=== PATIENT | male | born 1940 | race Caucasian/White ===

== ENCOUNTER 2023-10-29 04:34 | Inpatient (IN) | payer MEDICARE, SELFPAY ==
[2023-10-29] VITALS (17 sets, daily range): BP systolic 108–132; BP diastolic 6–82; PULSE 76–120; RESP 18–26; TEMP 36.2–37.4; O2SAT 95–100; BMI 16.7; BMI 15.7
--- NOTE | ~2023-10-29 | XR_ITS ---
XR chest 2V 10/31/2023 12:52 Indication: Shortness of breath Procedure: 2 view chest Comparison: 10/28/2023 Findings: Improved diffuse interstitial infiltrates with peripheral preference. No significant effusi on. No pneumothorax. Stable cardiomediastinal silhouette. Impression: 1: Improved diffuse bilateral interstitial infiltrates with areas of honeycombing in the lung bases, consistent with chronic interstitial lung disease. Cannot exclude superimposed interstitial edema. Reviewed, dictated and finalized at location B. Impression: 1: Improved diffuse bilateral interstitial infiltrates with areas of honeycombi ng in the lung bases, consistent with chronic interstitial lung disease. Cannot exclude superimposed interstitial edema.
--- NOTE | 2023-10-29 03:26 | ADMGEN ---
This patient, Logan Vicente, was admitted to IMU Room 201-01. Patient/family oriented to hospital policies and general routines including ID bracelet, bed and alarms, visiting hours, pain management, procedures, bathroom and other care routines, personal items, smoking policy, room service/diet, and visiting hours. Information on how to activate the Rapid Response Team has been discussed. Patient/Family are encouraged to report perceived risks to care and to ask questions if they do not understand what they are told or what they should do.
--- NOTE | 2023-10-29 04:36 | ECG_ITS ---
Test Date: 2023-10-29 11:29:51 Measurements Intervals [place] Rate: 86 P: 0 MI: 0 QRS: 38 QRSD: 84 T: -21 QT: 347 QTc: 415 Interpretive Statements ATRIAL FIBRILLATION NONSPECIFIC T-WAVE ABNORMALITY ABNORMAL RHYTHM ECG No previous ECG available for comparison Electronically Signed On 10-29-2023 11:40:55 CDT by Lisseth Erickson M.D.
[2023-10-29 06:18] LABS: Basophils Percent Auto 0.1 % (0.2-1.2); Hematocrit 37.8 % (42.0-52.0); Immature Granulocyte Absolute 0.07 K/mm3 (0.00-0.031); Immature Granulocyte Percent A 0.6 % (0-0.5); Lymphocytes Absolute Auto 0.39 K/mm3 (0.9-3.2); Lymphocytes Percent Auto 3.3 % (18.3-44.2); Mean Corpuscular HGB Conc 31.7 g/dl (32-36); Mean Corpuscular Hemoglobin 30.8 pg (26-34); Mean Corpuscular Volume 96.9 fl (80-100); Mean Platelet Volume 9.8 fl (7.4-10.4); Monocytes Absolute Auto 0.2 K/mm3 (0.1-0.6); Monocytes Percent Auto 1.5 % (2.6-8.5); Neutrophils Percent Auto 94.5 % (45.5-73.1); Platelet Count Result 166 k/mm3 (150-375); Red Cell Distribution Width 15.1 % (11.5-14.5); White Blood Count 11.7 K/mm3 (4.5-10.0)
[2023-10-29 06:34] LABS: Anion Gap 5 mmol/L (4-12); Blood Urea Nitrogen 15 mg/dL (9-20); Calcium 8.7 mg/dL (8.4-10.2); Carbon Dioxide 24 mmol/L (22-30); Chloride 108 mmol/L (98-107); Estimated CRCL calculation 54 ml/min; Estimated Glomerular Filt Rate > 60; Glucose 175 mg/dL (65-110); Magnesium 2.1 mg/dL (1.6-2.3); Phosphorus 3.3 mg/dL (2.5-4.5); Potassium 4.1 mmol/L (3.4-5.0); Sodium 137 mmol/L (137-145)
[2023-10-29 06:36] LABS: INR 1.1; Prothrombin Time 14.8 Seconds (11.1-14.7)
[2023-10-29 06:37] LABS: Partial Thromboplastin Time 34.6 Seconds (22.3-36.8)
[2023-10-29] MEDS: MORPHINE SULFATE (*CRX) 2 MG/ML INJ IV PUSH (08:26)
[2023-10-29] MEDS: PANTOPRAZOLE 40 MG TABLET PO (08:27)
[2023-10-29] MEDS: TAMSULOSIN HCL 0.4 MG CAPSULE PO (08:27)
[2023-10-29] MEDS: FLUTICASONE PROPIONATE 0.05% NA SPR 16 GM BTL (*BKC) 1 SPRAY NASAL ×2 (08:27→18:37)
[2023-10-29] MEDS: APIXABAN 2.5 MG TABLET PO ×2 (08:27→20:00)
[2023-10-29] MEDS: METOPROLOL SUCCINATE EXT REL 50 MG TABCR PO (08:27)
[2023-10-29] MEDS: FLUTICASONE/SALMETEROL 45-21 MCG INHALER 1 PUFF 2 PUFF INHALATION ×2 (08:56→20:30)
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
--- NOTE | 2023-10-29 17:51 | PM.IMHP ---
H&P: HPI History of Present Illness Date/Time: 10/29/23 17:51 Chief Complaint: Shortness of breath Narrative: Patient is 83-year-old pleasant male who has a history of COPD in the past history of hypertension. Comes to the hospital complaining of severe shortness of breath. He states his shortness of breath has gotten worse in the last few days denies any productive cough no nausea no vomiting. Patient has not been on any antibiotics recently. Does uses inhalers at home and has been compliant with all his home medications. Patient also has history of AFib for which she takes Eliquis. Patient states since he has been in the emergency room since last night and he has felt a lot better breathing has improved patient denies any orthopnea or dizziness or palpitation PMFSH Past Medical History Medical History (Updated 10/29/23 @ 12:09 by Nayan Cali MD) COPD (chronic obstructive pulmonary disease) GERD (gastroesophageal reflux disease) Hypertension Surgical History Surgical History (Updated 04/10/19 @ 17:35 by Lazara Blanton, [facility], ) History of cholecystectomy Social History Social History (Updated 04/10/19 @ 17:36 by Lazara Blanton, [facility], ) Social History: Quit smoking in 1987. Smoking status: Former smoker Alcohol intake: never Substance use: never Substance use type: does not use Do You Feel Safe in your Home?: Yes Lack of Transportation: No Lack of Food: Never True Current Housing: I Have Housing Concerned About Future Housing: No Difficulty Paying Gas/Electric Bills: No Difficulty Paying for Meds: No Currently Unemployed: No Education: High School Diploma/GED Difficulty w/ Childcare or Family Care: No Spiritual care concerns: No Meds Home Medications and Allergies Home Medications Medication Instructions Recorded Confirmed Type tamsulosin 0.4 mg capsule 0.4 mg PO DAILY 04/10/19 10/29/23 History albuterol sulfate 90 mcg/actuation 2 puff inhalation Q4H PRN 10/29/23 10/29/23 History aerosol inhaler Shortness Of Breath Or Wheezing apixaban 2.5 mg tablet (Eliquis) 2.5 mg PO BID 10/29/23 10/29/23 History budesonide-formoterol HFA 80 2 puff inhalation BID 10/29/23 10/29/23 History mcg-4.5 mcg/actuation aerosol inhaler fluticasone propionate 50 1 spray intranasal BID 10/29/23 10/29/23 History mcg/actuation nasal spray,suspension ipratropium 0.5 mg-albuterol 3 mg 3 ml inhalation Q6H PRN Shortness 10/29/23 10/29/23 History (2.5 mg base)/3 mL nebulization Of Breath soln metoprolol succinate 50 mg 50 mg PO DAILY 10/29/23 10/29/23 History tablet,extended release 24 hr montelukast 10 mg tablet 10 mg PO QHS 10/29/23 10/29/23 History pantoprazole 40 mg tablet,delayed 40 mg PO DAILY 10/29/23 10/29/23 History release Allergies Allergy/AdvReac Type Severity Reaction Status Date / Time codeine Allergy Unknown Unknown Verified 04/10/19 15:51 Vital Signs Vital Signs - 24 hr 10/29/23 03:33 10/29/23 03:00 10/29/23 04:00 Temperature 36.5 C 36.5 C 36.4 C Pulse Rate 101 H 78 99 Respiratory Rate 26 H 20 18 Blood Pressure 111/73 111/73 114/65 Pulse Oximetry 100 100 100 Oxygen Delivery Oxygen Flow Rate 10/29/23 04:00 10/29/23 04:00 10/29/23 05:52 Temperature Pulse Rate 100 100 94 Respiratory Rate 26 H Blood Pressure Pulse Oximetry 100 Oxygen Delivery High Flow Nasal Cannula Oxygen Flow Rate 5 10/29/23 07:43 10/29/23 08:00 10/29/23 08:00 Temperature 36.4 C Pulse Rate 89 98 89 Respiratory Rate 20 20 Blood Pressure 118/74 Pulse Oximetry 98 98 Oxygen Delivery High Flow Nasal Cannula Oxygen Flow Rate 5 10/29/23 10:00 10/29/23 11:48 10/29/23 12:00 Temperature 37.0 C Pulse Rate 90 108 H 120 H Respiratory Rate 24 H Blood Pressure 132/82 Pulse Oximetry 96 Oxygen Delivery Oxygen Flow Rate 10/29/23 12:00 10/29/23 16:00 10/29/23 16:00 Temperature 36.2 C L Pulse Rate 108
[2023-10-29] MEDS: AZITHROMYCIN 500 MG/NS 250 ML 500 MG/250 ML BAG 250 MG IVPB (20:00)
[2023-10-29] MEDS: MONTELUKAST SODIUM 10 MG TABLET PO (20:00)
[2023-10-29] MEDS: methylPREDNISolone SOD SUCC 125 MG VIAL 60 MG IV PUSH (21:09)
[2023-10-30] VITALS (23 sets, daily range): BP systolic 100–123; BP diastolic 59–71; PULSE 76–114; RESP 18–28; TEMP 36.4–36.9; O2SAT 93–100
[2023-10-30] MEDS: methylPREDNISolone SOD SUCC 125 MG VIAL 60 MG IV PUSH ×3 (05:21→21:40)
[2023-10-30] MEDS: METOPROLOL SUCCINATE EXT REL 50 MG TABCR PO (08:28)
[2023-10-30] MEDS: PANTOPRAZOLE 40 MG TABLET PO (08:28)
[2023-10-30] MEDS: TAMSULOSIN HCL 0.4 MG CAPSULE PO (08:28)
[2023-10-30] MEDS: FLUTICASONE PROPIONATE 0.05% NA SPR 16 GM BTL (*BKC) 1 SPRAY NASAL ×2 (08:28→16:54)
[2023-10-30] MEDS: APIXABAN 2.5 MG TABLET PO ×2 (08:29→19:54)
--- NOTE | 2023-10-30 09:10 | PCPTNOTE ---
Spoke with Dr. Cali, current hospitalist, TATYANA to remove bedrest orders. RN aware.
[2023-10-30] MEDS: FLUTICASONE/SALMETEROL 45-21 MCG INHALER 1 PUFF 2 PUFF INHALATION ×2 (09:12→20:06)
[2023-10-30 09:36] LABS: Hemoglobin 12.1 g/dL (14.0-18.0); Mean Corpuscular Hemoglobin 30.6 pg (26-34); Mean Corpuscular Volume 98.7 fl (80-100); Mean Platelet Volume 10.3 fl (7.4-10.4); Platelet Count Result 172 k/mm3 (150-375); Red Blood Count 3.95 M/mm3 (4.6-6.20); Red Cell Distribution Width 15.1 % (11.5-14.5); White Blood Count 13.4 K/mm3 (4.5-10.0)
[2023-10-30 09:51] LABS: Albumin Level 3.3 g/dL (3.5-5.1); Alkaline Phosphatase 52 U/L (38-126); Anion Gap 10 mmol/L (4-12); Aspartate Amino Transferase 31 U/L (17-59); Bilirubin,Total 0.7 mg/dL (0.2-1.3); Blood Urea Nitrogen 19 mg/dL (9-20); Calcium 9.1 mg/dL (8.4-10.2); Carbon Dioxide 22 mmol/L (22-30); Chloride 104 mmol/L (98-107); Estimated CRCL calculation 51 ml/min; Estimated Glomerular Filt Rate > 60; Glucose 314 mg/dL (65-110); Potassium 5.2 mmol/L (3.4-5.0); Sodium 136 mmol/L (137-145)
[2023-10-30 10:14] LABS: Alanine Aminotransferase 36 U/L (6-50)
--- NOTE | 2023-10-30 11:41 | ECHO_ITS ---
Patient Info Name: Logan Vicente Age: 83 years : 1940 Gender: Male Ht: 69 in Wt: 114 lbs BSA: 1.57 m2 HR: 114 bpm BP: 114 / 65 mmHg Heart Rhythm: Atrial Fibrillation Technical Quality: Fair Exam Date: 10/30/2023 2:31 PM Exam Location: Echo Lab Patient Status: Inpatient Admit Date: 10/29/2023 Staff Ordering Physician: Nayan Cali MD Chemical Project Engineer: Chacha Escudero RDCS Attending Provider: Beth Samuel MD Exam Type: CA echo doppler color flow Study Info Indications - chf Complete two-dimensional, color flow and Doppler transthoracic echocardiogram is performed. Summary 1. Complete two-dimensional, color flow and Doppler transthoracic echocardiogram is performed. 2. Left ventricular hypertrophy with hyperdynamic systolic contractility. 3. Biatrial dilation. 4. Right ventricular enlargement with reduced RV systolic function. 5. Heavily sclerotic aortic valve which is mildly stenotic valve area 1.4 cm2. 6. Mild mitral and tricuspid regurgitation. 7. Atrial fibrillation. Left Ventricle Left ventricular chamber dimension is normal. Left ventricular systolic function is hyperdynamic, estimated at >70%. There is moderate concentric increased left ventricular wall thickness. The left ventricular diastolic function is indeterminate. Right Ventricle Right ventricular chamber dimension is mildly enlarged. Right ventricular systolic function is reduced. Left Atria Left atrial chamber dimension is moderately enlarged. Right Atria Right atrial chamber dimension is moderately enlarged. Aortic Valve The aortic valve is trileaflet. There is severe aortic valve sclerosis. There is mild aortic valve stenosis with a peak velocity of 181 cm/s, mean gradient of 6 mmHg, and aortic valve area of 1.4 cm2. Mitral Valve The mitral valve has normal leaflets. There is trace mitral valve regurgitation. The mitral valve annulus is severely calcified. Tricuspid Valve The tricuspid valve leaflets are normal. There is mild tricuspid valve regurgitation. Pericardium/Pleural The pericardium appears normal. Aorta The aortic root size at the sinus of Valsalva is normal. Left Ventricular Outflow Tract Name Value Normal LVOT 2D LVOT Diameter 2.0 cm LVOT Doppler LVOT Peak Gradient 2 mmHg LVOT Mean Gradient 1 mmHg LVOT VTI 14 cm LVOT VTI/AV VTI Ratio 0.4 LVOT Stroke Volume 43 ml LVOT CO 3.4 l/min LVOT CI 2.2 l/min/m2 Pulmonic Valve Name Value Normal RVOT Doppler RVOT Peak Gradient 2 mmHg PV Doppler PV Peak Gradient 2 mmHg Mitral Valve Name
--- NOTE | 2023-10-30 11:42 | PM.IMPN ---
Progress Note: A&P Assessment and Plan (1) GERD (gastroesophageal reflux disease): Code(s): K21.9 - Gastro-esophageal reflux disease without esophagitis Status: Acute (2) COPD (chronic obstructive pulmonary disease): Code(s): J44.9 - Chronic obstructive pulmonary disease, unspecified Status: Acute (3) Back pain: Code(s): M54.9 - Dorsalgia, unspecified Status: Acute (4) Neck pain: Code(s): M54.2 - Cervicalgia Status: Acute (5) Atrial fibrillation by electrocardiogram: Code(s): I48.91 - Unspecified atrial fibrillation Status: Acute Plan COPD/acute respiratory failure with hypoxemia and hypercapnia Bronchodilators.: DuoNebs Steroids: Solu-Medrol Incentive Spirometry 2D echo pending chest x-ray reviewed Smoking cessation advised Currently on home O2 5 L as well Follow-up with primary care and remote operations producer routine IV antibiotics Rocephin and Zithromax Hyperglycemia due to steroid use will add sliding scale if needed Gait Instability Service to Physical Therapy Service to Home Care (PT) Home exercise program Patient is at risk. Counseled accordingly on risk reduction.as above AFIB with controlled ventricular response Optimize ARNI/ MARIA GUADALUPE-inhibitor/Beta-blockers, statin and antiplatelet therapy Eliquis Monitor for RVR and SOB History of hypertension continue metoprolol hydrochlorothiazide. History of hyperlipidemia, no lovastatin. History of BPH continue Flomax. History of anxiety continue Lexapro Subjective Date/time seen: 10/30/23 11:42 Interval history: Still very short of breath on 5 L oxygen also on home O2 Review of Systems Review of Systems: All systems reviewed & are unremarkable except as noted in HPI and below Exam Narrative: GENERAL: Well appearing, no acute distress. HEAD: Normocephalic, atraumatic. NECK: Supple. No adenopathy, no masses. RESPIRATORY: respirations nonlabored. , no rales, few wheezing. CARDIOVASCULAR: Regular rate and rhythm without murmurs, . Peripheral pulses 2+ and equal bilaterally. ABDOMINAL: Soft, nontender, nondistended, no hepatosplenomegaly. Normoactive BS. MUSCULOSKELETAL: no Epigastric and no hypochondrial tenderness SKIN: Warm, dry, NEURO: A&O X3. Moves all extremities Objective Data Vital Signs Vital Signs: Vital Signs - 24 hr 10/29/23 11:48 10/29/23 12:00 10/29/23 12:00 Temperature 37.0 C Pulse Rate 108 H 120 H 108 H Respiratory Rate 24 H 24 H Blood Pressure 132/82 Pulse Oximetry 96 96 Oxygen Delivery High Flow Nasal Cannula Oxygen Flow Rate 5 10/29/23 16:00 10/29/23 16:00 10/29/23 16:00 Temperature 36.2 C L Pulse Rate 82 81 82 Respiratory Rate 20 20 Blood Pressure 116/68 Pulse Oximetry 97 97 Oxygen Delivery High Flow Nasal Cannula Oxygen Flow Rate 5 10/29/23 18:00 10/29/23 19:13 10/29/23 19:29 Temperature 37.4 C Pulse Rate 97 94 Respiratory Rate 24 H Blood Pressure 108/6 L 108/60 Pulse Oximetry 95 Oxygen Delivery Oxygen Flow Rate 10/29/23 19:40 10/29/23 20:00 10/29/23 20:33 Temperature Pulse Rate 94 81 Respiratory Rate 24 H Blood Pressure 108/69 Pulse Oximetry 95 Oxygen Delivery High Flow Nasal Cannula Oxygen Flow Rate 5 10/29/23 20:00 10/30/23 00:00 10/29/23 22:00 Temperature 36.5 C Pulse Rate 90 79 76 Respiratory Rate 18 Blood Pressure 113/59 L Pulse Oximetry 99 Oxygen Delivery Oxygen Flow Rate 10/30/23 00:20 10/30/23 00:00 10/30/23 02:00 Temperature Pulse Rate 79 82 78 Respiratory Rate 18 Blood Pressure Pulse Oximetry 99 Oxygen Delivery High Flow Nasal Cannula Oxygen Flow Rate 5 10/30/23 03:28 10/30/23 04:00 10/30/23 04:00 Temperature 36.4 C Pulse Rate 88 88 76 Respiratory Rate 18 18 Blood Pressure 108/68 Pulse Oximetry 100 100 Oxygen Delivery High Flow Nasal Cannula Oxygen Flow Rate 5 10/30/23 05:57 10/30/23
[2023-10-30] MEDS: AZITHROMYCIN 500 MG/NS 250 ML 500 MG/250 ML BAG 250 MG IVPB (19:54)
[2023-10-30] MEDS: MONTELUKAST SODIUM 10 MG TABLET PO (19:54)
[2023-10-30] MEDS: MORPHINE SULFATE (*CRX) 2 MG/ML INJ IV PUSH (22:57)
[2023-10-31] VITALS (14 sets, daily range): BP systolic 100–116; BP diastolic 62–72; PULSE 68–96; RESP 13–22; TEMP 36.2–37; O2SAT 91–100
[2023-10-31 04:27] LABS: Hemoglobin 11.6 g/dL (14.0-18.0); Mean Corpuscular HGB Conc 32.2 g/dl (32-36); Mean Corpuscular Hemoglobin 30.4 pg (26-34); Mean Corpuscular Volume 94.2 fl (80-100); Mean Platelet Volume 10.4 fl (7.4-10.4); Platelet Count Result 170 k/mm3 (150-375); Red Blood Count 3.82 M/mm3 (4.6-6.20); Red Cell Distribution Width 14.7 % (11.5-14.5); White Blood Count 19.7 K/mm3 (4.5-10.0)
[2023-10-31 04:42] LABS: Alanine Aminotransferase 29 U/L (6-50); Albumin Level 3.1 g/dL (3.5-5.1); Alkaline Phosphatase 54 U/L (38-126); Anion Gap 2 mmol/L (4-12); Aspartate Amino Transferase 26 U/L (17-59); Bilirubin,Total 0.7 mg/dL (0.2-1.3); Blood Urea Nitrogen 23 mg/dL (9-20); Calcium 9.2 mg/dL (8.4-10.2); Carbon Dioxide 31 mmol/L (22-30); Chloride 101 mmol/L (98-107); Estimated CRCL calculation 51 ml/min; Estimated Glomerular Filt Rate > 60; Glucose 148 mg/dL (65-110); Potassium 4.3 mmol/L (3.4-5.0); Sodium 134 mmol/L (137-145)
[2023-10-31] MEDS: methylPREDNISolone SOD SUCC 125 MG VIAL 60 MG IV PUSH ×3 (05:03→21:50)
[2023-10-31] MEDS: FLUTICASONE PROPIONATE 0.05% NA SPR 16 GM BTL (*BKC) 1 SPRAY NASAL ×2 (09:02→16:59)
[2023-10-31] MEDS: APIXABAN 2.5 MG TABLET PO ×2 (09:03→21:52)
[2023-10-31] MEDS: PANTOPRAZOLE 40 MG TABLET PO (09:03)
[2023-10-31] MEDS: METOPROLOL SUCCINATE EXT REL 50 MG TABCR PO (09:03)
[2023-10-31] MEDS: TAMSULOSIN HCL 0.4 MG CAPSULE PO (09:03)
[2023-10-31] MEDS: FLUTICASONE/SALMETEROL 45-21 MCG INHALER 1 PUFF 2 PUFF INHALATION ×2 (09:19→20:00)
--- NOTE | 2023-10-31 11:18 | PM.IMPN ---
Progress Note: A&P Assessment and Plan (1) GERD (gastroesophageal reflux disease): Code(s): K21.9 - Gastro-esophageal reflux disease without esophagitis Status: Acute (2) COPD (chronic obstructive pulmonary disease): Code(s): J44.9 - Chronic obstructive pulmonary disease, unspecified Status: Acute (3) Back pain: Code(s): M54.9 - Dorsalgia, unspecified Status: Acute (4) Neck pain: Code(s): M54.2 - Cervicalgia Status: Acute (5) Atrial fibrillation by electrocardiogram: Code(s): I48.91 - Unspecified atrial fibrillation Status: Acute Plan COPD/acute respiratory failure with hypoxemia and hypercapnia Bronchodilators.: DuoNebs Steroids: Solu-Medrol Incentive Spirometry WBC is 11.7/13.4/19.7 2D echo pending chest x-ray ordered Smoking cessation advised Currently on home O2 5 L as well Follow-up with primary care and internal medicine physician assistant routine IV antibiotics Rocephin and Zithromax Hyperglycemia due to steroid use will add sliding scale if needed Gait Instability Service to Physical Therapy Service to Home Care (PT) Home exercise program Patient is at risk. Counseled accordingly on risk reduction.as above AFIB with controlled ventricular response Optimize ARNI/ MARIA GUADALUPE-inhibitor/Beta-blockers, statin and antiplatelet therapy Eliquis Monitor for RVR and SOB History of hypertension continue metoprolol hydrochlorothiazide. History of hyperlipidemia, no lovastatin. History of BPH continue Flomax. History of anxiety continue Lexapro Subjective Date/time seen: 10/31/23 11:18 Interval history: Still has cough shortness of breath Review of Systems Review of Systems: All systems reviewed & are unremarkable except as noted in HPI and below Exam Narrative: GENERAL: Well appearing, no acute distress. HEAD: Normocephalic, atraumatic. NECK: Supple. No adenopathy, no masses. RESPIRATORY: respirations nonlabored. , no rales, few wheezing. CARDIOVASCULAR: Regular rate and rhythm without murmurs, . Peripheral pulses 2+ and equal bilaterally. ABDOMINAL: Soft, nontender, nondistended, no hepatosplenomegaly. Normoactive BS. MUSCULOSKELETAL: no Epigastric and no hypochondrial tenderness SKIN: Warm, dry, NEURO: A&O X3. Moves all extremities Objective Data Vital Signs Vital Signs: Vital Signs - 24 hr 10/30/23 11:49 10/30/23 12:00 10/30/23 12:00 Temperature 36.4 C Pulse Rate 77 88 88 Respiratory Rate 28 H 28 H Blood Pressure 103/62 Pulse Oximetry 100 100 Oxygen Delivery Nasal Cannula Oxygen Flow Rate 5 10/30/23 16:00 10/30/23 14:00 10/30/23 16:00 Temperature 36.4 C L Pulse Rate 79 81 81 Respiratory Rate 24 H Blood Pressure 101/69 Pulse Oximetry 100 Oxygen Delivery Oxygen Flow Rate 10/30/23 16:00 10/30/23 18:00 10/30/23 19:30 Temperature 36.4 C L Pulse Rate 79 79 79 Respiratory Rate 24 H 24 H Blood Pressure 112/63 Pulse Oximetry 100 100 Oxygen Delivery High Flow Nasal Cannula Oxygen Flow Rate 5 10/30/23 19:55 10/30/23 20:08 10/30/23 20:00 Temperature Pulse Rate 79 91 Respiratory Rate 24 H Blood Pressure Pulse Oximetry 100 93 Oxygen Delivery High Flow Nasal Cannula Nasal Cannula Oxygen Flow Rate 5 5 10/30/23 22:00 10/30/23 23:00 10/30/23 23:05 Temperature 36.9 C Pulse Rate 76 79 79 Respiratory Rate 22 H 22 H Blood Pressure 100/61 Pulse Oximetry 96 96 Oxygen Delivery High Flow Nasal Cannula Oxygen Flow Rate 5 10/31/23 00:00 10/31/23 02:00 10/31/23 04:00 Temperature Pulse Rate 84 68 70 Respiratory Rate Blood Pressure Pulse Oximetry Oxygen Delivery Oxygen Flow Rate 10/31/23 04:45 10/31/23 04:00 10/31/23 06:00 Temperature 36.6 C Pulse Rate 70 80 79 Respiratory Rate 22 H 22 H Blood Pressure 107/62 Pulse Oximetry 96 96 Oxygen Delivery High Flow Nasal Cannula Oxygen Flow Rate 5 10/31/23 07:46 10/31/23
--- NOTE | 2023-10-31 17:23 | PC.NURSE ---
This patient, Logan Vicente, was transferred to [facility] via bed without issue on 10/31/23 at 1714. Personal belongings sent with patient. Report given to ALLAN Garrison. Appropriate documentation sent with patient.
[2023-10-31] MEDS: AZITHROMYCIN 500 MG/NS 250 ML 500 MG/250 ML BAG 250 MG IVPB (18:14)
[2023-10-31] MEDS: MONTELUKAST SODIUM 10 MG TABLET PO (21:52)
[2023-11-01] MEDS: methylPREDNISolone SOD SUCC 125 MG VIAL 60 MG IV PUSH ×2 (05:35→16:06)
[2023-11-01 07:12] VITALS: PULSE 62; RESP 18; O2SAT 96
[2023-11-01] MEDS: FLUTICASONE/SALMETEROL 45-21 MCG INHALER 1 PUFF 2 PUFF INHALATION ×2 (07:12→20:39)
[2023-11-01 08:00] VITALS: O2SAT 96
[2023-11-01 10:39] VITALS: PULSE 62
[2023-11-01] MEDS: PANTOPRAZOLE 40 MG TABLET PO (10:39)
[2023-11-01] MEDS: FLUTICASONE PROPIONATE 0.05% NA SPR 16 GM BTL (*BKC) 1 SPRAY NASAL ×2 (10:39→16:05)
[2023-11-01] MEDS: TAMSULOSIN HCL 0.4 MG CAPSULE PO (10:39)
[2023-11-01] MEDS: APIXABAN 2.5 MG TABLET PO ×2 (10:39→22:19)
[2023-11-01] MEDS: METOPROLOL SUCCINATE EXT REL 50 MG TABCR PO (10:39)
[2023-11-01 14:00] VITALS: BP 98/60; PULSE 79; RESP 20; TEMP 36.4; O2SAT 96
--- NOTE | 2023-11-01 16:39 | PM.IMPN ---
Progress Note: A&P Assessment and Plan (1) Atrial fibrillation: Code(s): I48.91 - Unspecified atrial fibrillation Status: Acute (2) Chronic respiratory failure: Code(s): J96.10 - Chronic respiratory failure, unspecified whether with hypoxia or hypercapnia Status: Acute (3) COPD (chronic obstructive pulmonary disease): Code(s): J44.9 - Chronic obstructive pulmonary disease, unspecified Status: Acute Plan A pleasant 83-year-old male with a past medical history prior smoking history, COPD with chronic respiratory failure baseline 5 L nasal cannula 09/12, hypertension, GERD, paroxysmal AFib on Eliquis who presents with complaints of severe shortness of breath. Admitted on 10/29/2023 for acute COPD exacerbation. # acute COPD exacerbation/chronic hypoxic respiratory failure -presented with severe shortness of breath. Now improved status post breathing treatments and Solu-Medrol -Solu-Medrol started on admission. Discontinue and start p.o. prednisone tomorrow. -currently on 5 L nasal cannula which is his home dose. -continue DuoNebs p.r.n. -continue [employer] montelukast, fluticasone, budesonide formoterol -azithromycin started on admission -checking quad viral screen -follow-up pulmonology outpatient # leukocytosis -present on admission which was mild and possibly reactive. Has been increasing but patient also received Solu-Medrol. He has a cough which she reports is mild and chronic without sputum production, patient is afebrile. Will check procalcitonin in the morning. If normal this can be followed up on serial laboratory draws as outpatient. Chest x-ray reviewed, interstitial infiltrates suggesting chronic lung disease although improved. # history of hypertension -continue C[employer]ER metoprolol succinate 50 mg p.o. q.day, has some episodes of soft blood pressure may have to decrease this. Chronic Conditions -GERD: Continue [employer]ER Protonix -paroxysmal AFib on Eliquis F/E/N: saline lock IV, replace lytes as needed, heart healthy diet GI prophylaxis: Continue CASK MAKER Protonix DVT prophylaxis: Continue CASK MAKER Eliquis 2.5 mg p.o. b.i.d. Lines: Peripheral IV Code Status: Patient wishes to be full code. Dispo: Patient lives with his . Plan is to discharge to home. Currently stable. Check procalcitonin and leukocytosis and respiratory condition tomorrow. Social Drivers of Health -Living arrangements: Lives with -Patient was screened for food insecurity, housing instability, transportation needs, utility difficulties, and interpersonal safety. die try out worker stamping not consulted has no needs are identified Heart Failure MIPS: Patient does not have heart failure. Note to the patient: The Century Cures Act makes medical notes like these available to patients in the interest of transparency. Please be advised this is a medical document. It is intended for [id number] communication. It is written in medical language and may contain unfamiliar abbreviations or verbiage. Components may appear blunt or direct. Medical documents are intended to carry relevant information, facts as evident, and the clinical opinion of the practitioner at the time of the encounter. This note was generated by a speech recognition system and may contain inherent errors or omissions not intended by the user. Grammatical errors, random word insertions, deletions, pronoun errors and incomplete sentences are occasional consequences of this technology due to software limitations. Not all errors are caught or corrected. If there are questions or concerns about the content of this note or information contained within the body of this dictation they should be addressed directly with author for clarification. The file time of this note does not necessarily represent the time the patient was seen. Subjective Date/time seen: 11/01/23 16:39 Interval history: No acute overn
[2023-11-01] MEDS: AZITHROMYCIN 500 MG/NS 250 ML 500 MG/250 ML BAG 250 MG IVPB (19:18)
[2023-11-01 21:09] VITALS: BP 98/71; PULSE 90; RESP 18; TEMP 36.9; O2SAT 94
[2023-11-01] MEDS: ACETAMINOPHEN 325 MG TABLET 650 MG PO (22:19)
[2023-11-01] MEDS: MONTELUKAST SODIUM 10 MG TABLET PO (22:19)
[2023-11-02 06:00] VITALS: BP 124/76; PULSE 85; RESP 16; TEMP 36.6; O2SAT 100
[2023-11-02 06:08] LABS: Hematocrit 37.3 % (42.0-52.0); Hemoglobin 12.1 g/dL (14.0-18.0); Mean Corpuscular HGB Conc 32.4 g/dl (32-36); Mean Corpuscular Hemoglobin 30.6 pg (26-34); Mean Corpuscular Volume 94.2 fl (80-100); Mean Platelet Volume 10.4 fl (7.4-10.4); Platelet Count Result 175 k/mm3 (150-375); Red Blood Count 3.96 M/mm3 (4.6-6.20); Red Cell Distribution Width 14.7 % (11.5-14.5); White Blood Count 15.2 K/mm3 (4.5-10.0)
[2023-11-02 06:18] LABS: Anion Gap 3 mmol/L (4-12); Blood Urea Nitrogen 26 mg/dL (9-20); Calcium 9.1 mg/dL (8.4-10.2); Carbon Dioxide 32 mmol/L (22-30); Chloride 100 mmol/L (98-107); Estimated CRCL calculation 52 ml/min; Estimated Glomerular Filt Rate > 60; Glucose 108 mg/dL (65-110); Magnesium 2.2 mg/dL (1.6-2.3); Sodium 135 mmol/L (137-145)
[2023-11-02 07:06] LABS: Influenza A QL RT-PCR Negative (Negative); Influenza B QL RT-PCR Negative (Negative); RSV RNA, RT-PCR Negative (Negative); SARS-CoV-2 RNA PCR Negative (Negative)
[2023-11-02 07:35] VITALS: PULSE 80; RESP 18; O2SAT 96
[2023-11-02] MEDS: FLUTICASONE/SALMETEROL 45-21 MCG INHALER 1 PUFF 2 PUFF INHALATION (07:35)
--- NOTE | 2023-11-02 08:32 | PM.DS ---
DS: Admitting Diagnosis Discharge Date November 02, 2023 Admitting Diagnosis Acute COPD exacerbation DS: Discharge Diagnosis Discharge Diagnosis (1) Chronic respiratory failure: Code(s): J96.10 - Chronic respiratory failure, unspecified whether with hypoxia or hypercapnia Status: Acute (2) COPD (chronic obstructive pulmonary disease): Code(s): J44.9 - Chronic obstructive pulmonary disease, unspecified Status: Acute DS: Summary Hospital Course Hospital Course: This is a pleasant 83-year-old male with a PMH prior smoking, COPD with chronic respiratory failure baseline 5 L nasal cannula 09/12, hypertension, GERD, paroxysmal AFib on Eliquis who presented on 10/29/2023 with complaints of severe shortness of breath. Admitted for COPD exacerbation receive DuoNeb treatments, azithromycin, Solu-Medrol. He has not required more than is 5 L nasal cannula. On November 02, 2023 the patient reports breathing well at his baseline. He has a rare cough which is dry. He has received 3 days of azithromycin and 5 days of Solu-Medrol. Continue home controller inhaler. The patient was full code during admission. Time Spent with Patient Time attestation: Total time spent providing and/or coordinating discharge services: Exam Const: General: comfortable and no acute distress Eyes: Pupils: Equal, round and reactive pupils present Neck: Neck: supple Resp: Effort & Inspection: normal respiratory effort Auscultation: clear to auscultation bilaterally Cardio: Rate: regular rate Rhythm: regular rhythm GI: GI Palp: Yes Soft to palpation and No Tenderness to palpation present (GI) Extrem: General: no edema DS: Data Data Completed and Pending Labs on day of discharge: Labs from last 24 hours 11/02/23 11/02/23 06:19 05:27 WBC 15.2 H RBC 3.96 L Hgb 12.1 L Hct 37.3 L MCV 94.2 MCH 30.6 MCHC 32.4 RDW 14.7 H Plt Count 175 MPV 10.4 Sodium 135 L Potassium 4.0 Chloride 100 Carbon Dioxide 32 H Anion Gap 3 L BUN 26 H Creatinine 0.70 Estim Creat Clear Calc 52 Estimated GFR > 60 Glucose 108 Calcium 9.1 Magnesium 2.2 Procalcitonin 0.0 Influenza A (RT-PCR) Negative Influenza B (RT-PCR) Negative RSV (RT-PCR) Negative SARS-CoV-2 RNA (RT-PCR) Negative Discharge Plan Discharge Attending physician on discharge: Caitie Hernandez Discharging Clinician: Caitie Hernandez Patient Disposition: Home Health Service Activity: may shower Diet: as tolerated Discharge Instructions: Care Coordination: Patient to have [facility] resume services at discharge. Their phone number is [phone], if you have any questions. They will contact you to schedule their first visit. RN Please fax discharge instructions to [phone]. Patient Instructions: Antibiotic Form, Apixaban (By mouth), Heart Failure (GEN), COPD (Chronic Obstructive Pulmonary Disease) (GEN) Stand Alone Forms: General Discharge Information Follow-up/Referrals: Shelly,Yanet Burgos [employer] [Primary Care Provider] - Call for Appointment Discharge Medications: Continued tamsulosin 0.4 mg capsule 0.4 mg PO DAILY ipratropium-albuterol 0.5 mg-3 mg(2.5 mg base)/3 mL solution for nebulization 3 ml INHALATION Q6H PRN (Reason: Shortness Of Breath) metoprolol succinate 50 mg tablet extended release 24 hr 50 mg PO DAILY pantoprazole 40 mg tablet,delayed release (DR/EC) 40 mg PO DAILY montelukast 10 mg tablet 10 mg PO QHS albuterol sulfate 90 mcg/actuation HFA aerosol inhaler 2 puff INHALATION Q4H PRN (Reason: Shortness Of Breath Or Wheezing) fluticasone propionate 50 mcg/actuation spray,suspension 1 spray INTRANASAL BID budesonide-formoterol 80-4.5 mcg/actuation HFA aerosol inhaler 2 puff INHALATION BID Eliquis 2.5 mg tablet 2.5 mg PO BID Date of admission: 10/29/23 04:34 Primary Care Provider: ShellyYanet Admtyler
[2023-11-02 09:15] VITALS: PULSE 85; O2SAT 94
[2023-11-02] MEDS: METOPROLOL SUCCINATE EXT REL 50 MG TABCR PO (09:15)
[2023-11-02] MEDS: FLUTICASONE PROPIONATE 0.05% NA SPR 16 GM BTL (*BKC) 1 SPRAY NASAL (09:15)
[2023-11-02] MEDS: TAMSULOSIN HCL 0.4 MG CAPSULE PO (09:15)
[2023-11-02] MEDS: PANTOPRAZOLE 40 MG TABLET PO (09:15)
[2023-11-02] MEDS: APIXABAN 2.5 MG TABLET PO (09:15)
== END 2023-11-02 14:10 | disposition home health service (06) | DRG 191 ==
LOC: ANHIMU 10-31 14:04 → ANH3MEDSUR 10-31 17:20
PROVIDERS: Internal Medicine; Admitting Provider Internal Medicine; PCP Nurse Practitioner Family; Visit Provider General Practice
DX: J44.1 Chronic obstructive pulmonary disease with (acute) exacerbation (principal); J96.11 Chronic respiratory failure with hypoxia; J96.12 Chronic respiratory failure with hypercapnia; K21.9 Gastro-esophageal reflux disease without esophagitis; M54.9 Dorsalgia, unspecified; M54.2 Cervicalgia; R26.89 Other abnormalities of gait and mobility; I10 Essential (primary) hypertension; E78.5 Hyperlipidemia, unspecified; N40.0 Benign prostatic hyperplasia without lower urinary tract symptoms; F41.9 Anxiety disorder, unspecified; R73.9 Hyperglycemia, unspecified; T38.0X5A Adverse effect of glucocorticoids and synthetic analogues, initial encounter; I48.0 Paroxysmal atrial fibrillation; Z11.52 Encounter for screening for COVID-19; Z90.49 Acquired absence of other specified parts of digestive tract; Z87.891 Personal history of nicotine dependence
CPT/HCPCS: 36415; 71046; 80048; 80053; 83735; 84100; 84145; 85025; 85027; 85610; 85730; 87637; 93005; 93306; 94640; 97110; 97162; 97530; A9270; J0456; J2270; J2919

== ENCOUNTER 2023-11-22 05:10 | Inpatient (IN) | payer MEDICARE, SELFPAY ==
[2023-11-22] VITALS (33 sets, daily range): BP systolic 90–111; BP diastolic 49–69; PULSE 60–102; RESP 18–24; TEMP 35.7–36.8; O2SAT 90–100; BMI 16.9
--- NOTE | ~2023-11-22 | XR_ITS ---
XR chest ET placement Ordering provider: Agustín Parker MD History: 83 years Male with . Intubation/OG tube placement . Comparison: November 22, 2023 FINDINGS: MEDIASTINUM: The cardiac silhouette is not enlarged. Endotracheal tube is above the edmundo by about 3 cm. Nasogastric tube is seen with the tip in the stomach. LUNGS: No effusion or pneumothorax. Bilateral interstitial and patchy opacification is seen. OTHER: No free air under the diaphragm. Degenerative the spine. IMPRESSION: Bilateral interstitial and alveolar opacification suggestive of pneumonia. Underlying pulmonary edema and fibrotic changes is not excluded. marked worsening compared to previous study is seen. Reviewed, dictated and finalized at location A. IMPRESSION: Bilateral interstitial and alveolar opacification suggestive of pneumonia. Unde rlying pulmonary edema and fibrotic changes is not excluded. marked worsening compared to previous study is seen.
--- NOTE | ~2023-11-22 | XR_ITS ---
XR abdomen gastric tube insert Ordering provider: Agustín Parker MD History: . OG placement . Comparison: None. FINDINGS/impression: BOWEL: Nonobstructive bowel gas pattern. Enteric tube is seen with the tip in the fundus of the stomach. ORGANOMEGALY: None. SIGNIFICANT PATHOLOGIC CALCIFICATIONS: None. OTHER: No free air is seen under the diaphragm. Reviewed, dictated and finalized at location A.
--- NOTE | ~2023-11-22 | XR_ITS ---
EXAMINATION: XR chest 1V portable DATE: 11/22/2023 10:47 INDICATION: Shortness of breath. TECHNIQUE: A single frontal view of the chest was obtained on 2 radiographs. COMPARISON: Chest 2 views 10/31/2023 FINDINGS: There is a diffuse coarse interstitial pattern in the lungs. There are airspace opacities a t left lung base. No pleural effusion or pneumothorax. The heart size is normal. IMPRESSION: 1. Stable diffuse lung disease, consistent with chronic interstitial lung disease. Reviewed, dictated and finalized at location A.
--- NOTE | 2023-11-22 03:49 | ADMGEN ---
This patient, Logan Vicente, was admitted to IMU Room 205-02. Patient/family oriented to hospital policies and general routines including ID bracelet, bed and alarms, visiting hours, pain management, procedures, bathroom and other care routines, personal items, smoking policy, room service/diet, and visiting hours. Information on how to activate the Rapid Response Team has been discussed. Patient/Family are encouraged to report perceived risks to care and to ask questions if they do not understand what they are told or what they should do.
--- NOTE | 2023-11-22 04:13 | ADMGEN ---
This patient, Logan Vicente, was admitted to IMU Room 205-02 on 11/22/23 at 0332. Patient/family oriented to hospital policies and general routines including ID bracelet, bed and alarms, visiting hours, pain management, procedures, bathroom and other care routines, personal items, smoking policy, room service/diet, and visiting hours. Information on how to activate the Rapid Response Team has been discussed. Patient/Family are encouraged to report perceived risks to care and to ask questions if they do not understand what they are told or what they should do.
[2023-11-22 05:39] LABS: Basophils Percent Auto 0.1 % (0.2-1.2); Immature Granulocyte Absolute 0.06 K/mm3 (0.00-0.031); Immature Granulocyte Percent A 0.7 % (0-0.5); Lymphocytes Absolute Auto 0.36 K/mm3 (0.9-3.2); Mean Corpuscular HGB Conc 31.7 g/dl (32-36); Mean Corpuscular Hemoglobin 30.4 pg (26-34); Mean Corpuscular Volume 95.8 fl (80-100); Mean Platelet Volume 9.8 fl (7.4-10.4); Monocytes Absolute Auto 0.1 K/mm3 (0.1-0.6); Monocytes Percent Auto 1.5 % (2.6-8.5); Neutrophils Absolute Auto 8.5 K/mm3 (1.3-6.7); Neutrophils Percent Auto 93.7 % (45.5-73.1); Platelet Count Result 346 k/mm3 (150-375); Red Blood Count 4.28 M/mm3 (4.6-6.20); Red Cell Distribution Width 15.1 % (11.5-14.5); White Blood Count 9.1 K/mm3 (4.5-10.0)
[2023-11-22 05:47] LABS: Anion Gap 10 mmol/L (4-12); Blood Urea Nitrogen 14 mg/dL (9-20); Carbon Dioxide 19 mmol/L (22-30); Chloride 108 mmol/L (98-107); Estimated CRCL calculation 50 ml/min; Estimated Glomerular Filt Rate > 60; Glucose 216 mg/dL (65-110); Magnesium 2.2 mg/dL (1.6-2.3); Sodium 137 mmol/L (137-145)
--- NOTE | 2023-11-22 05:51 | PM.IMHP ---
H&P: HPI History of Present Illness Date/Time: 11/22/23 05:51 Chief Complaint: Shortness of breath/atrial fibrillation with RVR Narrative: This is a very pleasant 83-year-old male with a PMH paroxysmal atrial fibrillation on Eliquis, COPD, lung fibrosis, chronic respiratory failure on 5 L nasal cannula, GERD, hypertension BPH who presented to [facility] with shortness of breath. He received Solu-Medrol in route. He typically wears 5 L at home and was placed on 5-6 L of high-flow nasal cannula. He was found to be in AFib with RVR as high as 168. His lactic acid was 3.3 going to 5.3. Troponin high sensitivity 21. Blood cultures obtained. White blood cell count 16.98. Serum creatinine 1.01. BNP 3600. EKG demonstrating atrial fibrillation with rapid ventricular rate. At the outside hospital he received magnesium 3 g, diltiazem 10 mg IV x1 then placed on 10 milligram/hour GTT, ceftriaxone, azithromycin, albuterol nebulizer. Subsequently transfer to [facility] for AFib with RVR and acute on chronic respiratory failure. Admitted on 11/22/2023 Review of Systems Review of Systems: All systems reviewed & are unremarkable except as noted in HPI and below (Subjective) [facility] Past Medical History Medical History (Updated 11/22/23 @ 05:56 by Caitie Hernandez MD) Atrial fibrillation Chronic respiratory failure COPD (chronic obstructive pulmonary disease) GERD (gastroesophageal reflux disease) Hypertension Surgical History Surgical History (Updated 04/10/19 @ 17:35 by Lazara Blanton, HEATHER, ) History of cholecystectomy Family History Family History Mother Father Cancer Chronic obstructive pulmonary disease Sibling Unknown family medical history Sibling Unknown family medical history Sibling Unknown family medical history Social History Social History (Updated 04/10/19 @ 17:36 by HEATHER Patel, ) Social History: Quit smoking in 1987. Smoking packs per day: 3 Smoking cigarettes per day: 60.0 Years smoked: 40 Smoking pack-years: 120.00 Smoking status: Former smoker Tobacco type: cigarettes Alcohol intake: never Substance use: never Substance use type: does not use Do You Feel Safe in your Home?: Yes Lack of Transportation: No Lack of Food: Never True Current Housing: I Have Housing Concerned About Future Housing: No Difficulty Paying Gas/Electric Bills: No Difficulty Paying for Meds: No Currently Unemployed: No Education: Trade/Vocational Certificate Difficulty w/ Childcare or Family Care: No Spiritual care concerns: No Meds Home Medications and Allergies Home Medications Medication Instructions Recorded Confirmed Type tamsulosin 0.4 mg capsule 0.4 mg PO DAILY 04/10/19 11/22/23 History albuterol sulfate 90 mcg/actuation 2 puff inhalation Q4H PRN 10/29/23 11/22/23 History aerosol inhaler Shortness Of Breath Or Wheezing apixaban 2.5 mg tablet (Eliquis) 2.5 mg PO BID 10/29/23 11/22/23 History budesonide-formoterol HFA 80 2 puff inhalation BID 10/29/23 11/22/23 History mcg-4.5 mcg/actuation aerosol inhaler fluticasone propionate 50 1 spray intranasal BID 10/29/23 11/22/23 History mcg/actuation nasal spray,suspension ipratropium 0.5 mg-albuterol 3 mg 3 ml inhalation Q6H PRN Shortness 10/29/23 11/22/23 History (2.5 mg base)/3 mL nebulization Of Breath soln metoprolol succinate 50 mg 50 mg PO DAILY 10/29/23 11/22/23 History tablet,extended release 24 hr montelukast 10 mg tablet 10 mg PO QHS 10/29/23 11/22/23 History pantoprazole 40 mg tablet,delayed 40 mg PO DAILY 10/29/23 11/22/23 History release lovastatin 40 mg tablet 40 mg PO DAILY 11/22/23 11/22/23 History naproxen sodium 220 mg tablet 220 mg PO Q8H PRN .joint pain 11/22/23 11/22/23 History (Aleve) Allergies Allergy/AdvReac Type Severity Reaction Stat
[2023-11-22] MEDS: dilTIAZem 100 MG/100 ML 100 MG/100 ML BAG 10 MG IV CONT ×2 (06:00→16:43)
[2023-11-22] MEDS: methylPREDNISolone SOD SUCC 125 MG VIAL 60 MG IV PUSH ×4 (06:00→23:21)
[2023-11-22 06:02] LABS: Troponin I 0.012 ng/mL (0.000-0.034)
[2023-11-22 06:09] LABS: Procalcitonin 0.2 ng/mL
[2023-11-22 06:16] LABS: Alveolar/Arterial O2 Gradient 194.8 mmHg; Base Excess ABG -2.3 mEq/l (+/-2.0); Carboxyhemoglobin 0.9 % THb (0-2.0); Fractional Inspired Oxygen 44 %; HCO3 ABG 20.2 mEq/l (22.0-26.0); Methemoglobin ABG 0.3 %THb (0-1.5); Oxygen Content ABG 17.2 %vol (16.0-22.0); Oxygen Saturation ABG 97.2 % (95.0-100.0); Oxyhemoglobin 95.7 % THb (90.0-100.0); PCO2 ABG 28.5 mmHg (35.0-45.0); PO2 ABG 86.4 mmHg (80.0-100.0); PO2 FiO2 Ratio Arterial Blood 1.96 %; Reduced Hemoglobin 3.1 %THb (0-5.0); Total Hemoglobin 12.7 g/dL (12.0-18.0); pH ABG 7.469 (7.350-7.450)
[2023-11-22 06:17] LABS: Device NASAL CANNULA; Modified Allen's Test Pass; Site Drawn RIGHT RADIAL
[2023-11-22] MEDS: SODIUM CHLORIDE 0.9% IV 1,000 ML 999 ML IV CONT (06:21)
[2023-11-22] MEDS: FLUTICASONE/SALMETEROL 45-21 MCG INHALER 1 PUFF 2 PUFF INHALATION ×2 (07:14→20:30)
[2023-11-22] MEDS: IPRATROPIUM BR 0.02% INH SOLN 0.5 MG/2.5 ML VIAL INHALATION ×5 (07:14→23:20)
[2023-11-22 08:35] LABS: Reflex Lactic Acid Yes or No Add Lactic
[2023-11-22] MEDS: FLUTICASONE PROPIONATE 0.05% NA SPR 16 GM BTL (*BKC) 1 SPRAY NASAL ×2 (08:43→20:09)
[2023-11-22] MEDS: TAMSULOSIN HCL 0.4 MG CAPSULE PO (08:43)
[2023-11-22] MEDS: APIXABAN 2.5 MG TABLET PO ×2 (08:43→20:09)
[2023-11-22] MEDS: METOPROLOL SUCCINATE EXT REL 50 MG TABCR PO (08:43)
[2023-11-22] MEDS: PANTOPRAZOLE 40 MG TABLET PO (08:43)
[2023-11-22 09:32] LABS: Lactic Acid 4.6 mmol/L (0.7-2.0)
[2023-11-22] MEDS: FUROSEMIDE INJ 40 MG/4 ML VIAL 20 MG IV PUSH (10:35)
--- NOTE | 2023-11-22 14:01 | WPDPN ---
Progress Note: A&P Assessment and Plan (1) Acute and chronic respiratory failure: Code(s): J96.20 - Acute and chronic respiratory failure, unspecified whether with hypoxia or hypercapnia Status: Acute (2) Atrial fibrillation with RVR: Code(s): I48.91 - Unspecified atrial fibrillation Status: Acute (3) Lactic acidosis: Code(s): E87.20 - Acidosis, unspecified Status: Acute (4) GERD (gastroesophageal reflux disease): Code(s): K21.9 - Gastro-esophageal reflux disease without esophagitis Status: Acute Plan 11/22/2023 interval history: patient presented with shortness of breath most likely multifactorial 2/2 COPD, ILD and Chest x-ray showing vascular congestion will CPM and will give one does of Lasix 20mg IV to help diurese the patient, upon arrival patient was found to be in A. Fib RVR most likely 2/2 hypoxia, started patient on diltiazem drip rate is trending down, upon arrival patient lactic acid was elevate most likely 2/2 hypoxia and stress unlikely to sepsis, patient stats feel better compared when he arrived. will continue to monitor Subjective Date/time seen: 11/22/23 14:01 Interval history: Chief Complaint: Shortness of breath/atrial fibrillation with RVR [id number]: This is a very pleasant 83-year-old male with a PMH paroxysmal atrial fibrillation on Eliquis, COPD, lung fibrosis, chronic respiratory failure on 5 L nasal cannula, GERD, hypertension BPH who presented to [facility] with shortness of breath. He received Solu-Medrol in route. He typically wears 5 L at home and was placed on 5-6 L of high-flow nasal cannula. He was found to be in AFib with RVR as high as 168. His lactic acid was 3.3 going to 5.3. Troponin high sensitivity 21. Blood cultures obtained. White blood cell count 16.98. Serum creatinine 1.01. BNP 3600. EKG demonstrating atrial fibrillation with rapid ventricular rate. At the outside hospital he received magnesium 3 g, diltiazem 10 mg IV x1 then placed on 10 milligram/hour GTT, ceftriaxone, azithromycin, albuterol nebulizer. Subsequently transfer to [facility] for AFib with RVR and acute on chronic respiratory failure. Admitted on 11/22/2023 11/22/2023 interval history: patient presented with shortness of breath most likely multifactorial 2/2 COPD, ILD and Chest x-ray showing vascular congestion will CPM and will give one does of Lasix 20mg IV to help diurese the patient, upon arrival patient was found to be in A. Fib RVR most likely 2/2 hypoxia, started patient on diltiazem drip rate is trending down, upon arrival patient lactic acid was elevate most likely 2/2 hypoxia and stress unlikely to sepsis, patient stats feel better compared when he arrived. will continue to monitor Review of Systems Review of Systems: All systems reviewed & are unremarkable except as noted in HPI and below (Subjective) Exam Narrative: General: elederly, frial, patient is comfortable NAD HEENT: eyes are clear nonicteric, normocephalic, atraumatic. Oral mucosa moist. b/l poor air entry with crackles HEART: RR S1S2 LUNGS:b/l poor air entry with crackles ABD: BS+, diffusely tender. SKIN: no obvious rash EXTREMITIES: no edema NEURO:A&O grossly intact PSYCH: Pleasant and cooperative with normal mood and affect Objective Data Vital Signs Vital Signs: Vital Signs - 24 hr 11/22/23 04:34 11/22/23 06:00 11/22/23 06:24 Temperature 36.4 C 36.4 C Pulse Rate 102 H 82 72 Respiratory Rate 23 H 22 H Blood Pressure 102/69 102/69 94/55 L Pulse Oximetry 92 99 Oxygen Delivery Oxygen Flow Rate Fraction of Inspired Oxygen 11/22/23 06:00 11/22/23 03:40 11/22/23 03:54 Temperature Pulse Rate 72 102 H 90 Respiratory Rate 23 H Blood Pressure 94/55 L Pulse Oximetry 92 Oxygen Delivery High Flow Nasal Cannula Oxygen Flow Rate 6 Fraction of Inspired Oxygen 11/22/23 04:00 11/22/23 07:17 11/21
[2023-11-22] MEDS: LOVASTATIN 20 MG TABLET 40 MG PO (16:43)
[2023-11-22] MEDS: MONTELUKAST SODIUM 10 MG TABLET PO (20:09)
[2023-11-23] VITALS (33 sets, daily range): BP systolic 90–140; BP diastolic 47–94; PULSE 53–94; RESP 18–24; TEMP 36–36.6; O2SAT 92–100
[2023-11-23] MEDS: IPRATROPIUM BR 0.02% INH SOLN 0.5 MG/2.5 ML VIAL INHALATION ×4 (04:40→19:50)
[2023-11-23] MEDS: methylPREDNISolone SOD SUCC 125 MG VIAL 60 MG IV PUSH ×4 (05:42→23:54)
[2023-11-23] MEDS: FLUTICASONE/SALMETEROL 45-21 MCG INHALER 1 PUFF 2 PUFF INHALATION ×2 (07:24→20:04)
[2023-11-23] MEDS: dilTIAZem 100 MG/100 ML 100 MG/100 ML BAG IV CONT (08:05)
[2023-11-23] MEDS: FLUTICASONE PROPIONATE 0.05% NA SPR 16 GM BTL (*BKC) 1 SPRAY NASAL ×2 (09:33→20:31)
[2023-11-23] MEDS: PANTOPRAZOLE 40 MG TABLET PO (09:33)
[2023-11-23] MEDS: METOPROLOL SUCCINATE EXT REL 50 MG TABCR PO (09:33)
[2023-11-23] MEDS: TAMSULOSIN HCL 0.4 MG CAPSULE PO (09:33)
[2023-11-23] MEDS: APIXABAN 2.5 MG TABLET PO ×2 (09:33→20:31)
[2023-11-23 10:01] LABS: Hematocrit 35.9 % (42.0-52.0); Hemoglobin 11.2 g/dL (14.0-18.0); Mean Corpuscular HGB Conc 31.2 g/dl (32-36); Mean Corpuscular Hemoglobin 30.4 pg (26-34); Mean Corpuscular Volume 97.6 fl (80-100); Mean Platelet Volume 10.2 fl (7.4-10.4); Platelet Count Result 318 k/mm3 (150-375); Red Blood Count 3.68 M/mm3 (4.6-6.20); Red Cell Distribution Width 15.2 % (11.5-14.5); White Blood Count 26.3 K/mm3 (4.5-10.0)
[2023-11-23 10:15] LABS: Anion Gap 10 mmol/L (4-12); Blood Urea Nitrogen 18 mg/dL (9-20); Calcium 8.7 mg/dL (8.4-10.2); Carbon Dioxide 19 mmol/L (22-30); Chloride 105 mmol/L (98-107); Estimated CRCL calculation 48 ml/min; Estimated Glomerular Filt Rate > 60; Glucose 290 mg/dL (65-110); Sodium 134 mmol/L (137-145)
[2023-11-23 10:18] LABS: Lactic Acid Reflex 4.1 mmol/L (0.7-2.0)
--- NOTE | 2023-11-23 10:46 | PC.NURSE ---
Spoke with Dr. Fan concerning patients HR and Cardizem drip. Patient's HR has been between 50s-70s. Verbal orders to stop Cardizem drip.
--- NOTE | 2023-11-23 12:52 | WPDPN ---
Progress Note: A&P Assessment and Plan (1) Acute and chronic respiratory failure: Code(s): J96.20 - Acute and chronic respiratory failure, unspecified whether with hypoxia or hypercapnia Status: Acute (2) Atrial fibrillation with RVR: Code(s): I48.91 - Unspecified atrial fibrillation Status: Acute (3) Lactic acidosis: Code(s): E87.20 - Acidosis, unspecified Status: Acute (4) GERD (gastroesophageal reflux disease): Code(s): K21.9 - Gastro-esophageal reflux disease without esophagitis Status: Acute Plan 11/22/2023 interval history: patient presented with shortness of breath most likely multifactorial 2/2 COPD, ILD and Chest x-ray showing vascular congestion will CPM and will give one does of Lasix 20mg IV to help diurese the patient, upon arrival patient was found to be in A. Fib RVR most likely 2/2 hypoxia, started patient on diltiazem drip rate is trending down, upon arrival patient lactic acid was elevate most likely 2/2 hypoxia and stress unlikely to sepsis, patient stats feel better compared when he arrived. will continue to monitor 11/23/2023 interval history: patient presented with shortness of breath most likely multifactorial 2/2 COPD, ILD and Chest x-ray showing vascular congestion will CPM and will give one dose of Lasix 20mg IV to help diurese the patient, upon arrival patient was found to be in A. Fib RVR most likely 2/2 hypoxia, started patient on diltiazem drip rate is trending down, today patient HR is trending down, will stop the drip and resume patient home BB, upon arrival patient lactic acid was elevate most likely 2/2 hypoxia and stress unlikely to sepsis, unable to hydrate the patient 2/2 due lungs issues, patient stats feel better compared when he arrived. will continue to monitor. Subjective Date/time seen: 11/23/23 12:52 Interval history: Chief Complaint: Shortness of breath/atrial fibrillation with RVR [id number]: This is a very pleasant 83-year-old male with a PMH paroxysmal atrial fibrillation on Eliquis, COPD, lung fibrosis, chronic respiratory failure on 5 L nasal cannula, GERD, hypertension BPH who presented to [facility] with shortness of breath. He received Solu-Medrol in route. He typically wears 5 L at home and was placed on 5-6 L of high-flow nasal cannula. He was found to be in AFib with RVR as high as 168. His lactic acid was 3.3 going to 5.3. Troponin high sensitivity 21. Blood cultures obtained. White blood cell count 16.98. Serum creatinine 1.01. BNP 3600. EKG demonstrating atrial fibrillation with rapid ventricular rate. At the outside hospital he received magnesium 3 g, diltiazem 10 mg IV x1 then placed on 10 milligram/hour GTT, ceftriaxone, azithromycin, albuterol nebulizer. Subsequently transfer to [facility] for AFib with RVR and acute on chronic respiratory failure. Admitted on 11/22/2023 11/22/2023 interval history: patient presented with shortness of breath most likely multifactorial 2/2 COPD, ILD and Chest x-ray showing vascular congestion will CPM and will give one does of Lasix 20mg IV to help diurese the patient, upon arrival patient was found to be in A. Fib RVR most likely 2/2 hypoxia, started patient on diltiazem drip rate is trending down, upon arrival patient lactic acid was elevate most likely 2/2 hypoxia and stress unlikely to sepsis, patient stats feel better compared when he arrived. will continue to monitor. 11/23/2023 interval history: patient presented with shortness of breath most likely multifactorial 2/2 COPD, ILD and Chest x-ray showing vascular congestion will CPM and will give one dose of Lasix 20mg IV to help diurese the patient, upon arrival patient was found to be in A. Fib RVR most likely 2/2 hypoxia, started patient on diltiazem drip rate is trending down, today patient HR is trending down, will stop the drip and resume patient home BB, upon arrival patient lactic acid was eleva
[2023-11-23 12:59] LABS: Reflex Lactic Acid Yes or No Add Lactic
[2023-11-23 13:25] LABS: Lactic Acid 3.7 mmol/L (0.7-2.0)
[2023-11-23] MEDS: SODIUM CHLORIDE 0.9% IV 1,000 ML 50 ML IV CONT (14:00)
[2023-11-23] MEDS: LOVASTATIN 20 MG TABLET 40 MG PO (16:48)
--- NOTE | 2023-11-23 17:56 | PC.NURSE ---
Patient's 02 saturation dropped into the 70's. 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 Patient stating he couldn't breath. Notified RT, applied non rebreather mask and increased pt's fi02 to 65%. RT at bedside. Patient still tachypneic but Sp02 is 97%, pt states he is more comfortable and his breathing is better.
--- NOTE | 2023-11-23 18:50 | PC.NURSE ---
pt continuing to desat, RT notified, pt increased to 55L 70% on Airvo.
[2023-11-23] MEDS: MONTELUKAST SODIUM 10 MG TABLET PO (20:31)
[2023-11-23] MEDS: LEVALBUTEROL NEB 1.25 MG/3 ML INHALATION (21:19)
[2023-11-23] MEDS: ALPRAZolam (*CRX) 0.25 MG TABLET PO (21:55)
[2023-11-23] MEDS: FUROSEMIDE INJ 40 MG/4 ML VIAL 20 MG IV PUSH (21:55)
[2023-11-24] VITALS (18 sets, daily range): BP systolic 95–101; BP diastolic 49–65; PULSE 75–102; RESP 18–24; TEMP 36–36.6; O2SAT 94–99; BMI 18.2
[2023-11-24] MEDS: LEVALBUTEROL NEB 1.25 MG/3 ML (00:22)
[2023-11-24] MEDS: IPRATROPIUM BR 0.02% INH SOLN 0.5 MG/2.5 ML VIAL INHALATION ×4 (00:22→11:32)
[2023-11-24 04:21] LABS: Hematocrit 35.7 % (42.0-52.0); Hemoglobin 11.4 g/dL (14.0-18.0); Mean Corpuscular HGB Conc 31.9 g/dl (32-36); Mean Corpuscular Hemoglobin 30.2 pg (26-34); Mean Corpuscular Volume 94.4 fl (80-100); Platelet Count Result 317 k/mm3 (150-375); Red Blood Count 3.78 M/mm3 (4.6-6.20); White Blood Count 21.4 K/mm3 (4.5-10.0)
[2023-11-24 04:43] LABS: Anion Gap 7 mmol/L (4-12); Blood Urea Nitrogen 18 mg/dL (9-20); Calcium 8.7 mg/dL (8.4-10.2); Carbon Dioxide 29 mmol/L (22-30); Chloride 100 mmol/L (98-107); Estimated CRCL calculation 43 ml/min; Estimated Glomerular Filt Rate > 60; Glucose 156 mg/dL (65-110); Magnesium 1.9 mg/dL (1.6-2.3); Potassium 3.4 mmol/L (3.4-5.0); Sodium 136 mmol/L (137-145)
[2023-11-24] MEDS: methylPREDNISolone SOD SUCC 125 MG VIAL 60 MG IV PUSH ×2 (06:18→12:32)
--- NOTE | 2023-11-24 07:47 | PCRCNOTE ---
Advair not given. Patient unable to understand directions and take adequately.
[2023-11-24] MEDS: TAMSULOSIN HCL 0.4 MG CAPSULE PO (09:18)
[2023-11-24] MEDS: APIXABAN 2.5 MG TABLET PO (09:19)
[2023-11-24] MEDS: PANTOPRAZOLE 40 MG TABLET PO (09:19)
[2023-11-24] MEDS: FLUTICASONE PROPIONATE 0.05% NA SPR 16 GM BTL (*BKC) 1 SPRAY NASAL (09:19)
[2023-11-24] MEDS: METOPROLOL SUCCINATE EXT REL 50 MG TABCR PO (09:19)
--- NOTE | 2023-11-24 09:57 | PC.NURSE ---
[id number]-Clementine from Dr. Bravo's office called for an update on this patient. Patient has been admitted 5 times recently. Patient gave verbal consent to give information to this nurse.
--- NOTE | 2023-11-24 10:58 | PC.NURSE ---
Spoke with Dr. Fan concerning patients anxiety and increased oxygen requirements. Verbal orders for PRN 0.25mg Alprazolam and pulmonology consult.
[2023-11-24] MEDS: ALPRAZolam (*CRX) 0.25 MG TABLET PO (11:15)
--- NOTE | 2023-11-24 11:16 | PC.NURSE ---
Notified RT patient is having a hard time catching his breath. Continuing to conditioning coach patient on slow deep breaths.
--- NOTE | 2023-11-24 11:35 | PCRCNOTE ---
Called to patient's room for low O2 sats. Patient was 72% on Airvo @ 60L 80%. Titrated slowly to 95% FiO2 while teaching patient to slow his breathing down and to breathe in through his nose and out through his mouth. Patient's O2 sat came up to 98%. Breathing treatment then started. Patient's O2 sats remained in the high 90s. Breathsounds diminished with respirations @ 20. Will leave Airvo on current settings of 60L 95%.
--- NOTE | 2023-11-24 13:22 | PC.NURSE ---
Dr. Fan at bedside, verbal orders for 40 IV lasix and 40 PO potassium
[2023-11-24] MEDS: POTASSIUM CHLORIDE 20 MEQ ER TABLET 40 MEQ PO (13:27)
[2023-11-24] MEDS: FUROSEMIDE INJ 40 MG/4 ML VIAL IV PUSH ×2 (13:27→14:50)
[2023-11-24] MEDS: methylPREDNISolone SOD SUCC 125 MG VIAL IV PUSH (14:50)
--- NOTE | 2023-11-24 15:20 | WPDCNINT ---
Assessment and Plan Assessment and plan (1) Acute and chronic respiratory failure: Code(s): J96.20 - Acute and chronic respiratory failure, unspecified whether with hypoxia or hypercapnia Status: Acute Assessment and Plan: Patient with acute on chronic respiratory failure, patient has history of COPD and underlying interstitial lung disease, uses 5 L oxygen at home -was admitted on 11/22/2023 with AFib RVR -11/24/2023: Patient was hypoxic with respiratory distress, tachypneic, using accessory muscles of respiration, in impending respiratory failure -patient was transferred to the ICU and intubated and placed on mechanical ventilation -currently on CMV mode of ventilation, peep of 5, 100% FiO2 -will order post intubation ABGs and adjust ventilator accordingly -continue Solu-Medrol for possible interstitial lung disease flare -continue bronchodilators with ipratropium and Xopenex -obtain CTA to rule out PE -11/23: Will hold all blood, urine and sputum cultures -will start vancomycin and cefepime (11/23), deescalate once cultures are negative -will start sedation with fentanyl and Versed infusion, maintain RASS of 0 to -2, daily sedation vacation (2) Atrial fibrillation with RVR: Code(s): I48.91 - Unspecified atrial fibrillation Status: Acute Assessment and Plan: Patient with AFib RVR, on p.o. metoprolol XL which will hold for now -blood pressure is adequate, will place patient on IV metoprolol q.6 hours -continue Eliquis -if blood pressures drop will place patient on amiodarone infusion for rate control 10/30/2023: Echocardiogram Summary 1. Complete two-dimensional, color flow and Doppler transthoracic echocardiogram is performed. 2. Left ventricular hypertrophy with hyperdynamic systolic contractility. 3. Biatrial dilation. 4. Right ventricular enlargement with reduced RV systolic function. 5. Heavily sclerotic aortic valve which is mildly stenotic valve area 1.4 cm2. 6. Mild mitral and tricuspid regurgitation. 7. Atrial fibrillation (3) COPD (chronic obstructive pulmonary disease): Code(s): J44.9 - Chronic obstructive pulmonary disease, unspecified Status: Acute Assessment and Plan: History of COPD -120 pack year history of smoking -continue bronchodilators (4) Interstitial lung disease: Code(s): J84.9 - Interstitial pulmonary disease, unspecified Status: Acute Assessment and Plan: History of interstitial lung disease -question of interstitial lung disease flare -continue Solu-Medrol for now -private eye has been consulted by hospitalist Plan DVT prophylaxis: Reina Stress ulcer prophylaxis: Protonix Nutrition: NPO Code Status: Full code Critical Care Time Spent: 51 minutes Discussed with patient and his spouse at bedside prior to intubation, they were agreeable for mechanical ventilation and wanted everything to be done keep him alive. I answered all questions Due to a high probability of clinically significant, life threatening deterioration, the patient required my highest level of preparedness to intervene emergently and I personally spent this critical care time directly and personally managing the patient. This critical care time included obtaining a history; examining the patient; pulse oximetry; ordering and review of studies; arranging urgent treatment with development of a management plan; evaluation of patient's response to treatment; frequent reassessment; and discussions with other providers. It was exclusive of separately billable procedures and treating other patients and teaching time. Please see Assessment and Plan section and the rest of the note for further information on patient assessment and treatment This dictation may have been done utilizing a voice recognition system. Attempts have been made to correct errors. However, there may be uncorrected grammatical, spelling, and recognitions errors present. Intens
--- NOTE | 2023-11-24 15:21 | PC.NURSE ---
Pt's SOB increased, Sp02 in the 70's, called RT. Airvo is at 100%. Called Dr. Fan, verbal orders for 40 IV Lasix and [address] Fan consulting Dr. Parker.
--- NOTE | 2023-11-24 15:48 | WPDPROCEDUR ---
Procedures Intubation Intubation Date: 11/24/23 Intubation Time: 15:35 Consent: After discussing in details with the patient and the spouse consent was obtained for intubation and mechanical ventilation A pre-procedural Time-Out was completed immediately before starting the procedure and confirmed: Patient Identification, Site, Procedure, Patient Position and the Availability of Requisite Equipment: Yes Sedative: etomidate Paralytic: rocuronium Laryngoscope: fiber optic video scope Assist device used: fiber optic device ET tube size: 8 Tube secured depth (cm): 24 Tube secured location: lips Tube placement confirmation: visualized tube passing through cords, equal breath sounds bilaterally, no breath sounds over epigastrium and confirmation by capnometry Patient tolerated procedure: well Intubation complications: none
[2023-11-24 16:40] LABS: Lactic Acid Reflex 4.2 mmol/L (0.7-2.0)
--- NOTE | 2023-11-24 17:30 | WPDPN ---
Progress Note: A&P Assessment and Plan (1) Acute and chronic respiratory failure: Code(s): J96.20 - Acute and chronic respiratory failure, unspecified whether with hypoxia or hypercapnia Status: Acute (2) Atrial fibrillation with RVR: Code(s): I48.91 - Unspecified atrial fibrillation Status: Acute (3) Lactic acidosis: Code(s): E87.20 - Acidosis, unspecified Status: Acute (4) GERD (gastroesophageal reflux disease): Code(s): K21.9 - Gastro-esophageal reflux disease without esophagitis Status: Acute Plan 11/22/2023 interval history: patient presented with shortness of breath most likely multifactorial 2/2 COPD, ILD and Chest x-ray showing vascular congestion will CPM and will give one does of Lasix 20mg IV to help diurese the patient, upon arrival patient was found to be in A. Fib RVR most likely 2/2 hypoxia, started patient on diltiazem drip rate is trending down, upon arrival patient lactic acid was elevate most likely 2/2 hypoxia and stress unlikely to sepsis, patient stats feel better compared when he arrived. will continue to monitor 11/23/2023 interval history: patient presented with shortness of breath most likely multifactorial 2/2 COPD, ILD and Chest x-ray showing vascular congestion will CPM and will give one dose of Lasix 20mg IV to help diurese the patient, upon arrival patient was found to be in A. Fib RVR most likely 2/2 hypoxia, started patient on diltiazem drip rate is trending down, today patient HR is trending down, will stop the drip and resume patient home BB, upon arrival patient lactic acid was elevate most likely 2/2 hypoxia and stress unlikely to sepsis, unable to hydrate the patient 2/2 due lungs issues, patient stats feel better compared when he arrived. will continue to monitor. Subjective Date/time seen: 11/24/23 17:30 Interval history: 11/22/2023 interval history: patient presented with shortness of breath most likely multifactorial 2/2 COPD, ILD and Chest x-ray showing vascular congestion will CPM and will give one does of Lasix 20mg IV to help diurese the patient, upon arrival patient was found to be in A. Fib RVR most likely 2/2 hypoxia, started patient on diltiazem drip rate is trending down, upon arrival patient lactic acid was elevate most likely 2/2 hypoxia and stress unlikely to sepsis, patient stats feel better compared when he arrived. will continue to monitor 11/23/2023 interval history: patient presented with shortness of breath most likely multifactorial 2/2 COPD, ILD and Chest x-ray showing vascular congestion will CPM and will give one dose of Lasix 20mg IV to help diurese the patient, upon arrival patient was found to be in A. Fib RVR most likely 2/2 hypoxia, started patient on diltiazem drip rate is trending down, today patient HR is trending down, will stop the drip and resume patient home BB, upon arrival patient lactic acid was elevate most likely 2/2 hypoxia and stress unlikely to sepsis, unable to hydrate the patient 2/2 due lungs issues, patient stats feel better compared when he arrived. will continue to monitor. 11/24/2023 interval history: rounding on the patient and discuss with nursing, patient was having difficulty with breathing and desaturating, lungs sounded congested gave Lasix 40mg IV, went back to check on the patient was breathing better and now he can breath little better, later received call from his nurse that patient is desating, spoke with Dr. Davenport pit recorder and came to see the patient after examine and evaluation it was decided that patient need to be intubated and place on the ventilator, discuss with both the patient and his , patient wants to be intubated, Dr. Davenport did eplained to the patient that because of his severe COPD and ILD he may not come off the ventilator, however patient agreed for intubation and patient was transferred ICU where is was intubated. Review of Systems Review of Systems: All system
--- NOTE | 2023-11-24 17:41 | P.DN_ITS ---
Discharge Summary Date and Time Date of : 11/24/23 Time of : 16:22 Provider Pronounced By: Provider Name of Provider That Pronounced: Dr. Herrera Probable Cause of Probable Cause of : Cardiac arrest Summary Hospital Course: 11/24/2023 interval history: rounding on the patient and discuss with nursing, patient was having difficulty with breathing and desaturating, lungs sounded congested gave Lasix 40mg IV, went back to check on the patient was breathing better and now he can breath little better, later received call from his nurse that patient is desating, spoke with Dr. Davenport surveillance officer and came to see the patient after examine and evaluation it was decided that patient need to be intubated and place on the ventilator, discuss with both the patient and his , patient wants to be intubated, Dr. Davenport did eplained to the patient that because of his severe COPD and ILD he may not come off the ventilator, however patient agreed for intubation and patient was transferred ICU where is was intubated. patient was intubated in ICU and [facility] was called and ALCS protocol was called ER physician Dr. Herrera and Dr Gonzales were present ACLS protocol was in progress when arrived, CPR was continued but patient did not have pulse, after 20min, patient present in the room and she agreed to stop CPR and patient was pronounced at 16:22 Additional Data Confirmation of as documented by pronouncing clinician: Pupillary Reflex, Palpable Pulses, Response to Stimuli, Heart Tones and Breath Sounds Name of Provider Notified: Dr. Fan Time Provider Notified: 16:22 Provider Requests Autopsy: No Customer Data Technician Notified: Yes Date [facility] Notified of : 11/24/23 Time [facility] Notified of : 16:53
[2023-11-24 19:22] LABS: Reflex Lactic Acid Yes or No Add Lactic
--- NOTE | 2023-11-24 22:45 | PC.NURSE ---
Addendum entered by Caryn Contreras RN 11/24/23 22:51: This program writer spoke with Rosio at [facility]. Original Note: [id number]- Gabriela from [facility] notified the hospital that the family of patient has consented to tissue donation. [facility] was contacted per program writer at [phone] to provide patient information, family contact information,and to make aware that [facility] will be picking up patient for donation prior to disposition to home.
--- NOTE | 2023-12-03 07:02 | WPDPN ---
Subjective Date/time seen: 11/24/23 1600 Interval history: Was nearby when a Code Blue was called overhead. Arrived to find patient receiving active CPR by staff. Patient had been complaining of SOB and has COPD, chronic resp failure and lung fibrosis. Please see Code Blue sheet for details of medications and time administered. was available during the code and she was present for some of the code. She was accompanied with a family/friend. Despite CPR and appropriate medications, ROSC was not able to be achieved. We spoke about Jules's wishes and she ultimately decided to stop CPR. CPR was stopped and TOD was called at 1622. Objective Data Meds/Results Radiology Results: ITS Impressions Chest X-Ray 11/24/23 15:57 IMPRESSION: Bilateral interstitial and alveolar opacification suggestive of pneumonia. Underlying pulmonary edema and fibrotic changes is not excluded. marked worsening compared to previous study is seen.
== END 2023-11-24 16:22 | disposition expired | DRG 208 ==
LOC: ANHICU 12-03 15:27 → ANHIMU 12-03 15:27
PROVIDERS: Internal Medicine; Admitting Provider General Practice; PCP Nurse Practitioner Family; Visit Provider Family Medicine
DX: J96.21 Acute and chronic respiratory failure with hypoxia (principal); E87.20 Acidosis, unspecified; I48.0 Paroxysmal atrial fibrillation; J44.9 Chronic obstructive pulmonary disease, unspecified; J84.10 Pulmonary fibrosis, unspecified; I10 Essential (primary) hypertension; N40.0 Benign prostatic hyperplasia without lower urinary tract symptoms; K21.9 Gastro-esophageal reflux disease without esophagitis; R79.89 Other specified abnormal findings of blood chemistry; Z99.81 Dependence on supplemental oxygen; Z79.01 Long term (current) use of anticoagulants; Z87.891 Personal history of nicotine dependence
CPT/HCPCS: 31500; 36415; 36600; 71045; 80048; 82375; 82805; 83050; 83605; 83735; 84145; 84484; 85025; 85027; 87040; 92950; 94002; 94640; A9270; J0171; J1940; J2250; J2919; J3010; J7030